=== PATIENT | female | born 1950 | race Caucasian/White ===

== ENCOUNTER 2017-10-04 09:35 | Emergency (ER) | payer OTHER ==
[2017-10-04 09:42] VITALS: TEMP 97.5; BMI 26.9
--- NOTE | 2017-10-04 10:10 | PDOC ---
History of Present Illness - General Chief Complaint: Pain Stated Complaint: RT ARM SORENESS 4/10, H/O CHEST PAIN PL NOW 0/10 Time Seen by Provider: 10/04/17 09:47 History Source: Patient - History of Present Illness Initial Comments: 10/04/17 09:50 Patient is a 67 y.o. female with a PMH of HTN and DLD who presents to our ED c/ o 1 day h/o of sharp, intermittent L sided chest pain, non-exertional, non- pleuritic with no identifiable triggering or relieving factors. Patient denies any associated shortness of breath, lightheadedness, diaphoresis, nausea or vomiting. 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 Patient further notes she had negative stress testing 2-3 years previous for similar complaints and everything was negative. NKDA Surgical: Hysterectomy Social: (-) cigarettes, (+) social alcohol 1-2 drinks weekly, (-) recreational drugs PMD: Dr. Stahl and Mickey Past History - Past Medical History Allergies/Adverse Reactions: Allergies Allergy/AdvReac Type Severity Reaction Status Date / Time pravastatin AdvReac Severe Myalgias Verified 10/04/17 09:38 simvastatin AdvReac Severe Myalgias Verified 10/04/17 09:38 atorvastatin AdvReac Intermediate Myalgias Verified 10/04/17 09:38 nifedipine AdvReac Intermediate Leg Edema Verified 10/04/17 09:38 Home Medications: Ambulatory Orders Multivitamin [Multivitamins] 1 each PO DAILY 02/19/13 Aspirin [Aspirin Ec] 81 mg PO DAILY 12/31/13 Cholecalciferol (Vitamin D3) [Vitamin D3] 1,000 unit PO DAILY tablet 04/09/15 Anemia: No Asthma: No Cancer: No Cardiac Disorders: Yes (CARDIAC SPASM) CVA: No COPD: No CHF: No Dementia: No Diabetes: No GI Disorders: Yes (DIVERTICULITIS) Disorders: No HTN: Yes Hypercholesterolemia: Yes Liver Disease: No Seizures: No Thyroid Disease: No - Surgical History Abdominal Surgery: Yes Appendectomy: No Cardiac Surgery: Yes (ANGIOGRAM (NEGATIVE)) Cholecystectomy: No Lung Surgery: No Neurologic Surgery: No Orthopedic Surgery: No - Immunization History Immunization Up to Date: No - Suicide/Smoking/Psychosocial Hx Smoking Status: No Smoking History: Smoker current status UNK Have you smoked in the past 12 months: No Number of Cigarettes Smoked Daily: 0 Information on smoking cessation initiated: No Hx Alcohol Use: (nightly) Drug/Substance Use Hx: No Substance Use Type: Alcohol Hx Substance Use Treatment: No Review of Systems - Review of Systems Constitutional: No: Chills, Fever Cardiac (ROS): Yes: Chest Pain. No: Lightheadedness, Palpitations, Syncope, Chest Tightness ABD/GI: No: Constipated, Diarrhea, Nausea, Vomiting *Physical Exam - Vital Signs Last Vital Signs Temp Pulse Resp BP Pulse Ox 97.5 F L 77 18 174/81 100 10/04/17 09:35 10/04/17 09:35 10/04/17 09:35 10/04/17 09:35 10/04/17 09:35 - Physical Exam General Appearance: Yes: Nourished, Appropriately Dressed Neck: positive: Trachea midline, Supple Respiratory/Chest: positive: Lungs Clear, Normal Breath Sounds. negative: Accessory Muscle Use, Labored Respiration, Crackles, Rales, Rhonchi, Stridor, Wheezing Cardiovascular: positive: Regular Rhythm, Regular Rate, S1, S2. negative: Edema , JVD, Murmur, Tachycardia Gastrointestinal/Abdominal: positive: Normal Bowel Sounds, Soft Extremity: positive: Normal Capillary Refill, Normal Inspection Integumentary: positive: Normal Color, Dry, Warm ED Treatment Course - LABORATORY CBC & Chemistry Diagram: 10/04/17 10:00 10/04/17 10:00 - RADIOLOGY Radiology Studies Ordered: Category Date Time Status CHEST PA & LAT [RAD] Stat Radiology 10/04/17 09:48 Ordered Medical Decision Making - Medical Decision Making 10/04/17 10:11 Patient is a 67 y.o. female who presents with intermittent chest pain that radiates to her R arm. Initial DDX is ACS (less likely, Heart Score 2) vs. Costochondritis. PLAN: 1. CBC, CMP 2. EKG 3. Troponin x1 10/04/17 11:29 Heart Score (pending Troponin) 3, Wells Score 0. CBC, CMP wnL. CXR shows non- enlarged cardiac [place], visible costophrenic angle, no infiltration, consodlidation. Troponin Pending. Patient resting comfortably. 10/04/17 11:48 EKG shows NSR HR 56, no LAD, no RAD, normal intervals, good R wave progression V1-V6, no ST elevations/depressions suggesting ischemic change. 10/04/17 12:28 Troponin (-). Patient discharged home with return precautions, advised to RTW in 48 hours. *DC/Admit/Observation/Transfer Diagnosis at time of Disposition: Chest pain in adult - Discharge Dispostion Disposition: HOME Condition at time of disposition: Stable - Referrals Referrals: Giacomo Lebron MD [Primary Care Provider] - - Patient Instructions Printed Discharge Instructions: DI for Atypical Chest Pain Additional Instructions: Please return to the Emergency Department for any worsening or concerning symptoms including prolonged chest pain, shortness or breath, palpitations, lightheadedness. Please follow up with your PCP in the next 1 week. - Post Discharge Activity Forms/Work/School Notes: Back to Work
[2017-10-04 10:16] LABS: BASOPHIL 0.6 % (0-2.0); EOSINOPHIL 1.8 % (0-4.5); MCH 29.3 pg (25.7-33.7); MCHC 33.2 g/dl (32.0-36.0); MEAN CELL VOLUME 88.3 fl (80-96); NEUTROPHILS 61.5 % (42.8-82.8); PLATELET COUNT 282 K/MM3 (134-434); RDW 13.3 % (11.6-15.6); WHITE BLOOD COUNT 6.5 K/mm3 (4.0-10.8)
[2017-10-04 10:32] LABS: ALBUMIN 3.5 g/dl (3.5-5.0); ALK PHOS 63 U/L (32-92); ANION GAP 7 (8-16); BILIRUBIN,TOTAL 0.4 mg/dl (0.2-1.0); CALCIUM 9.5 mg/dl (8.4-10.2); CO2 26 mmol/L (22-28); CPK 95 IU/L (26-192); CREATININE 0.8 mg/dl (0.6-1.3); GLUCOSE,RANDOM 97 mg/dl (74-106); SGOT/AST 25 U/L (10-42); SGPT/ALT 22 U/L (10-40); TOT PROT 6.3 g/dl (6.4-8.3)
[2017-10-04 12:19] LABS: TROPONIN I (DFP) < 0.03 ng/ml (0.03-0.50)
[2017-10-04 12:41] VITALS: BP 127/80; PULSE 59
--- NOTE | 2017-10-05 12:34 | EKG ---
Test Reason : Blood Pressure : / mmHG Vent. Rate : 056 BPM Atrial Rate : 056 BPM P-R Int : 154 ms QRS Dur : 076 ms QT Int : 408 ms P-R-T Axes : 063 017 042 degrees QTc Int : 393 ms SINUS BRADYCARDIA NO PREVIOUS ECGS AVAILABLE Confirmed by MD CHEEMA MARJORY ([id number]) on 10/05/2017 12:34:18 PM Referred By: AUSTYN FAM Confirmed By:RONY CHEEMA MD
== END 2017-10-04 12:30 | disposition home or self-care (01) ==
LOC: FER 09:35
DX: R07.9 Chest pain, unspecified (principal); I10 Essential (primary) hypertension; E78.5 Hyperlipidemia, unspecified
CPT/HCPCS: 36415; 71020-TC; 80053; 82550; 84484; 85025; 93005; 99285-25

== ENCOUNTER 2021-09-23 22:56 | Emergency (ER) | payer OTHER ==
[2021-09-23 23:13] VITALS: BP 146/88; PULSE 81; TEMP 97.8; BMI 26.6
[2021-09-24] MEDS ORDERED: NAPROXEN 375 MG TABLET PO ONE (00:29)
[2021-09-24] MEDS ORDERED: NAPROXEN 375 MG TABLET ONE (00:30)
== END 2021-09-24 00:56 | disposition home or self-care (01) ==
LOC: FER 22:56
DX: S22.41XA Multiple fractures of ribs, right side, initial encounter for closed fracture (principal); W19.XXXA Unspecified fall, initial encounter; Y92.9 Unspecified place or not applicable
CPT/HCPCS: 70450-TC; 71046-TC-FY; 71101-TC-RT-FY; 99284-25

== ENCOUNTER 2022-09-29 10:00 | Day surgery (SDC) | payer OTHER ==
[2022-09-27 13:09] VITALS: BMI 26.9
[2022-09-29] MEDS: CYCLOPENTOLATE 2% OPHTH SOLN 2 ML BOTTLE ONE ×3 (10:50→11:00)
[2022-09-29] MEDS: TROPICAMIDE 1% OPHTH SOLN 15 ML BOTTLE ONE ×3 (10:50→11:00)
[2022-09-29] MEDS: PHENYLEPHRINE 2.5% OPHTH SOLN 15 ML BOTTLE ONE ×3 (10:50→11:00)
[2022-09-29] MEDS: CIPROFLOXACIN 0.3% EYE DROPS 5 ML BOTTLE ONE ×3 (10:50→11:00)
[2022-09-29] MEDS ORDERED: NEO/POLYMYX B SULF/DEXAMETH OPHTHALMIC 5ML BOTTLE ONE (11:28)
[2022-09-29] MEDS ORDERED: CARBACHOL 0.01% INTRA-OCULAR 1.5 ML VIAL ONE (11:28)
[2022-09-29] MEDS ORDERED: BSS (NA/CA/MG/K) BALANCED SALT SOLUTION OPHTH SOLN 15 ML BOTTLE ONE (11:28)
[2022-09-29] MEDS ORDERED: LIDOCAINE 1% P/F 10 MG/ML VIAL ONE (11:28)
[2022-09-29] MEDS ORDERED: MIDAZOLAM HCL 2 MG/2 ML SINGLE DOSE VIAL ONE (12:35)
[2022-09-29 13:08] VITALS: RESP 18; TEMP 97.6
[2022-09-29 13:36] VITALS: BP 110/60; PULSE 60
== END 2022-09-29 13:47 | disposition home or self-care (01) ==
LOC: FASU 10:00
PROVIDERS: ATTEND Ophthalmology
DX: H26.8 Other specified cataract (principal)
CPT/HCPCS: 66984; V2632; 82962

== ENCOUNTER 2023-02-02 06:38 | Day surgery (SDC) | payer OTHER ==
[2023-01-28 17:40] VITALS: BMI 26.9
[2023-02-02] MEDS: TROPICAMIDE 1% OPHTH SOLN 15 ML BOTTLE ONE ×3 (07:00→07:10)
[2023-02-02] MEDS: CIPROFLOXACIN 0.3% EYE DROPS 5 ML BOTTLE ONE ×3 (07:00→07:10)
[2023-02-02] MEDS: CYCLOPENTOLATE 2% OPHTH SOLN 2 ML BOTTLE ONE ×3 (07:00→07:10)
[2023-02-02] MEDS: PHENYLEPHRINE 2.5% OPTHALMIC DROP 2ML BOTTLE ONE ×3 (07:00→07:10)
[2023-02-02] MEDS ORDERED: PHENYLEPHRINE/KETOROLAC 4 ML VIAL IO ONE (07:08)
[2023-02-02] MEDS ORDERED: TETRACAINE 0.5% OPHTH SOLN 2 ML BOTTLE ONE (07:09)
[2023-02-02] MEDS ORDERED: LIDOCAINE HCL/PF 1% SDV 5ML VIAL ONE (07:09)
[2023-02-02] MEDS ORDERED: BSS (NA/CA/MG/K) BALANCED SALT SOLUTION OPHTH SOLN 15 ML BOTTLE ONE (07:09)
[2023-02-02] MEDS ORDERED: TRYPAN BLUE 0.5 ML DISP.SYRIN ONE (07:09)
[2023-02-02] MEDS ORDERED: EPINEPHrine/PF 1 MG/1 ML (1:1,000) AMPULE ONE (07:09)
[2023-02-02] MEDS ORDERED: ACETYLCHOLINE 1:100 INTRA-OCUL 20 MG/2 ML KIT ONE (07:09)
[2023-02-02] MEDS ORDERED: NEO/POLYMYX B SULF/DEXAMETH OPHTHALMIC 5ML BOTTLE ONE (07:10)
[2023-02-02] MEDS ORDERED: CARBACHOL 0.01% INTRA-OCULAR 1.5 ML VIAL ONE (07:10)
[2023-02-02] MEDS ORDERED: MIDAZOLAM HCL 2 MG/2 ML SINGLE DOSE VIAL ONE ×2 (07:37→08:37)
[2023-02-02] MEDS ORDERED: ONDANSETRON 4 MG/2 ML VIAL ONE (08:22)
[2023-02-02 09:25] VITALS: BP 112/71; PULSE 71; RESP 18; TEMP 98
== END 2023-02-02 09:30 | disposition home or self-care (01) ==
LOC: FASU 06:38
PROVIDERS: ATTEND Ophthalmology
PROC: 08RJ3JZ Replacement of Right Lens with Synthetic Substitute, Percutaneous Approach (ICD-10-PCS; principal; 2023-02-02 08:26)
DX: H26.8 Other specified cataract (principal)
CPT/HCPCS: 66984; V2632; 82962; J1097